=== PATIENT | male | born 1970 | race Caucasian/White ===

== ENCOUNTER → 2016-12-04 | Outpatient (CLI) | payer OTHER ==
[~2016-12-04] MED LIST: FLOM5CAP PO; LEXA1TAB PO; RANI15TA PO; TRAZ100T4 PO; WELL100T PO
== END ==
LOC: M OUTALCOH 08:03
PROVIDERS: ATTEND Psychiatry & Neurology Psychiatry
DX: F19.20 Other psychoactive substance dependence, uncomplicated (principal); F10.20 Alcohol dependence, uncomplicated

== ENCOUNTER → 2017-01-07 | Outpatient (RCR) | payer OTHER | LOC: M OUTALCOH 12-12 14:27 | PROVIDERS: ATTEND Psychiatry & Neurology Psychiatry | DX: F10.20 Alcohol dependence, uncomplicated (principal); F19.20 Other psychoactive substance dependence, uncomplicated ==

== ENCOUNTER → 2017-02-07 | Outpatient (RCR) | payer MEDICAID, OTHER, SELFPAY | LOC: M OUTALCOH 01-08 16:40 | PROVIDERS: ATTEND Psychiatry & Neurology Psychiatry | DX: F19.20 Other psychoactive substance dependence, uncomplicated (principal); F10.20 Alcohol dependence, uncomplicated ==

== ENCOUNTER 2017-03-07 08:45 | Outpatient (RCR) | payer OTHER | END 2017-03-09 | LOC: M OUTALCOH 08:45 | PROVIDERS: ATTEND Psychiatry & Neurology Psychiatry | DX: F19.20 Other psychoactive substance dependence, uncomplicated (principal); F10.20 Alcohol dependence, uncomplicated ==

== ENCOUNTER → 2017-03-13 | Outpatient (REF) | payer OTHER | LOC: M LAB REF 16:00 | PROVIDERS: ATTEND Surgery | DX: L72.0 Epidermal cyst (principal) ==

== ENCOUNTER 2017-03-21 08:45 | Outpatient (RCR) | payer OTHER | END 2017-04-09 | LOC: M OUTALCOH 08:45 | PROVIDERS: ATTEND Psychiatry & Neurology Psychiatry | DX: F19.20 Other psychoactive substance dependence, uncomplicated (principal); F10.20 Alcohol dependence, uncomplicated ==

== ENCOUNTER → 2017-04-14 | Outpatient (REF) | payer OTHER ==
[2017-04-14 12:01] LABS: FREE T4 1.08 NG/DL (0.76-1.46)
[2017-04-16 00:06] LABS: Lyme Disease IgG/IgM Antibodie <0.91 ISR (0.00-0.90); Lyme Disease IgM Ab Quantitati <0.80 index (0.00-0.79)
== END ==
LOC: M SFHCPLAZ 08:25
PROVIDERS: ATTEND Family Medicine
DX: R61 Generalized hyperhidrosis (principal); M25.50 Pain in unspecified joint; A09 Infectious gastroenteritis and colitis, unspecified

== ENCOUNTER → 2017-04-15 | Outpatient (REF) | payer OTHER | LOC: M SFHCPLAZ 09:41 | PROVIDERS: ATTEND Family Medicine | DX: A09 Infectious gastroenteritis and colitis, unspecified (principal) ==

== ENCOUNTER → 2017-04-21 | Outpatient (REF) | payer OTHER ==
[2017-04-21 12:57] LABS: BASO % 0.5 % (0.0-1.0); EOS # 0.4 K/mm3 (0.0-0.50); EOS % 4.7 % (0.0-3.0); LARGE UNSTAINED CELL # 0.1 K/mm3 (0.0-0.4); LARGE UNSTAINED CELL % 1.3 % (0.0-4.0); LYMPH # 2.2 K/mm3 (1.5-4.5); LYMPH % 24.6 % (24.0-44.0); MEAN CORPUSCULAR HGB CONC 34.8 g/dl (32.0-36.5); MEAN CORPUSCULAR VOLUME 97.5 fl (80.0-96.0); MONO # 0.4 K/mm3 (0.0-0.8); MONO % 5.2 % (0.0-5.0); NEUTROPHILS # 5.3 K/mm3 (1.8-7.7); NEUTROPHILS % 63.6 % (36.0-66.0); PLATELET COUNT, AUTOMATED 294 k/mm3 (150-450); RED CELL DISTRIBUTION WIDTH 12.8 % (11.5-14.5); WHITE BLOOD COUNT 8.3 K/mm3 (4.0-10.0)
[2017-04-21 13:33] LABS: ALBUMIN 3.7 GM/DL (3.2-5.2); ALBUMIN/GLOBULIN RATIO 1.09 (1.00-1.93); ALKALINE PHOSPHATASE 107 U/L (45-117); ALT/SGPT 30 U/L (12-78); ANION GAP 3 MEQ/L (8-16); AST/SGOT 19 U/L (15-37); BILIRUBIN,TOTAL 1.1 MG/DL (0.2-1.0); BLOOD UREA NITROGEN 10 MG/DL (7-18); CARBON DIOXIDE LEVEL 30 MEQ/L (21-32); CHLORIDE LEVEL 107 MEQ/L (98-107); CREATININE FOR GFR 0.93 MG/DL (0.70-1.30); GLOMERULAR FILTRATION RATE > 60.0 (>60); GLUCOSE, FASTING 116 MG/DL (70-105); POTASSIUM SERUM 4.3 MEQ/L (3.5-5.1); SODIUM LEVEL 140 MEQ/L (136-145); TOTAL PROTEIN 7.1 GM/DL (6.4-8.2)
== END ==
LOC: M SFHCPLAZ 07:44
PROVIDERS: ATTEND Family Medicine
DX: M25.50 Pain in unspecified joint (principal); R19.7 Diarrhea, unspecified

== ENCOUNTER → 2017-05-05 | Outpatient (CLI) | payer OTHER ==
--- NOTE | 2017-05-05 12:16 | REP ---
Left foot four views : There is no fracture or dislocation. Mineralization and joint spaces are normal. There are no calcifications or foreign bodies. Impression: Negative left foot . Signed by Jarocho Walsh MD 05/05/2017 11:52 A
== END ==
LOC: M WUC 11:11
PROVIDERS: ATTEND Family Medicine
DX: M25.579 Pain in unspecified ankle and joints of unspecified foot (principal)

== ENCOUNTER → 2017-05-27 | Outpatient (CLI) | payer OTHER ==
[~2017-05-27] MED LIST changes: +TRAZ-136 PO; -TRAZ100T4 PO
== END ==
LOC: M OUTALCOH 07:40
PROVIDERS: ATTEND Psychiatry & Neurology Psychiatry
DX: F19.20 Other psychoactive substance dependence, uncomplicated (principal); F10.20 Alcohol dependence, uncomplicated

== ENCOUNTER 2017-06-12 15:00 | Outpatient (RCR) | payer OTHER | END 2017-07-10 | LOC: M OUTALCOH 15:00 | PROVIDERS: ATTEND Psychiatry & Neurology Psychiatry | DX: F19.20 Other psychoactive substance dependence, uncomplicated (principal); F10.20 Alcohol dependence, uncomplicated ==

== ENCOUNTER → 2017-07-28 | Outpatient (REF) | payer OTHER | LOC: M LABDRAW1 13:10 | PROVIDERS: ATTEND Psychiatry & Neurology Psychiatry | DX: F10.20 Alcohol dependence, uncomplicated (principal); F19.20 Other psychoactive substance dependence, uncomplicated ==

== ENCOUNTER 2017-08-04 09:00 | Outpatient (RCR) | payer OTHER | END 2017-08-09 | LOC: M OUTALCOH 09:00 | PROVIDERS: ATTEND Psychiatry & Neurology Psychiatry | DX: F19.20 Other psychoactive substance dependence, uncomplicated (principal); F10.20 Alcohol dependence, uncomplicated ==

== ENCOUNTER → 2017-12-30 | Outpatient (CLI) | payer OTHER ==
[2017-12-30 14:31] LABS: BASO # 0.1 10^3/uL (0.0-0.2); BASO % 0.9 % (0.0-1.0); EOS # 0.4 10^3/uL (0.0-0.50); EOS % 5.7 % (0.0-3.0); HEMOGLOBIN 15.3 g/dl (14.0-18.0); IMMATURE GRANULOCYTE % 0.3 % (0-3.0); LYMPH # 2.5 10^3/uL (1.5-4.5); LYMPH % 33.3 % (24.0-44.0); MEAN CORPUSCULAR HEMOGLOBIN 30.5 pg (27.0-33.0); MEAN CORPUSCULAR HGB CONC 34.8 g/dl (32.0-36.5); MEAN CORPUSCULAR VOLUME 87.8 fl (80.0-96.0); MONO # 0.6 10^3/uL (0.0-0.8); MONO % 8.2 % (0.0-5.0); NEUTROPHILS # 3.9 10^3/uL (1.8-7.7); NEUTROPHILS % 51.6 % (36.0-66.0); PLATELET COUNT, AUTOMATED 308 10^3/uL (150-450); RED BLOOD COUNT 5.01 10^6/uL (4.30-6.10); RED CELL DISTRIBUTION WIDTH 12.6 % (11.5-14.5); WHITE BLOOD COUNT 7.5 10^3/uL (4.0-10.0)
[2017-12-30 14:41] LABS: APPEARANCE, URINE CLEAR (CLEAR); BACTERIA, URINE AUTO NEGATIVE (NEGATIVE); BILIRUBIN, URINE AUTO NEGATIVE (NEGATIVE); BLOOD, URINE BLOOD NEGATIVE (NEGATIVE); COLOR, URINE YELLOW (YELLOW); GLUCOSE, URINE (UA) AUTO NEGATIVE (NEGATIVE); KETONE, URINE AUTO NEGATIVE (NEGATIVE); LEUKOCYTE ESTERASE, URINE AUTO NEGATIVE (NEGATIVE); MUCUS, URINE SMALL (NEGATIVE); NITRITE, URINE AUTO NEGATIVE (NEGATIVE); PROTEIN, URINE AUTO NEGATIVE (NEGATIVE); RBC, URINE AUTO 3 /HPF (0-3); SPECIFIC GRAVITY URINE AUTO 1.013 (1.002-1.035); SQUAMOUS EPITHELIAL CELL UR AU 0 /HPF (0-6); UROBILINOGEN, URINE AUTO 0.2 mg/dL (0.0-2.0); WBC, URINE AUTO 0 /HPF (0-3)
[2017-12-30 14:45] LABS: ALBUMIN/GLOBULIN RATIO 1.33 (1.00-1.93); ALKALINE PHOSPHATASE 68 U/L (45-117); ALT/SGPT 40 U/L (12-78); ANION GAP 8 MEQ/L (8-16); AST/SGOT 25 U/L (7-37); BILIRUBIN,TOTAL 0.8 MG/DL (0.2-1.0); BLOOD UREA NITROGEN 12 MG/DL (7-18); CALCIUM LEVEL 9.1 MG/DL (8.5-10.1); CARBON DIOXIDE LEVEL 30 MEQ/L (21-32); CHLORIDE LEVEL 102 MEQ/L (98-107); CREATININE FOR GFR 0.88 MG/DL (0.70-1.30); GLOMERULAR FILTRATION RATE > 60.0 (>60); GLUCOSE, FASTING 97 MG/DL (70-100); POTASSIUM SERUM 4.2 MEQ/L (3.5-5.1); SODIUM LEVEL 140 MEQ/L (136-145)
[2017-12-31 08:08] LABS: HEPATITIS A IgG TOTAL Negative (Negative)
[2017-12-31 10:56] LABS: HEPATITIS B SURFACE ANTIBODY NEGATIVE (POSITIVE)
[2017-12-31 10:59] LABS: HEPATITIS B SURFACE ANTIGEN NEGATIVE (NEGATIVE)
== END ==
LOC: M LAB 13:17
DX: F10.21 Alcohol dependence, in remission (principal); Z79.899 Other long term (current) drug therapy
CPT/HCPCS: 80053

== ENCOUNTER → 2018-06-26 | Outpatient (CLI) | payer OTHER ==
[2018-06-26 08:31] LABS: BASO # 0.1 10^3/uL (0.0-0.2); BASO % 0.9 % (0.0-1.0); EOS # 0.3 10^3/uL (0.0-0.50); EOS % 4.8 % (0.0-3.0); HEMATOCRIT 46.5 % (42.0-52.0); HEMOGLOBIN 16.3 g/dl (13.5-17.5); IMMATURE GRANULOCYTE % 0.3 % (0-3.0); LYMPH # 1.8 10^3/uL (1.5-4.5); LYMPH % 26.8 % (24.0-44.0); MEAN CORPUSCULAR HGB CONC 35.1 g/dl (32.0-36.5); MEAN CORPUSCULAR VOLUME 91.2 fl (80.0-96.0); MONO # 0.6 10^3/uL (0.0-0.8); MONO % 9.2 % (0.0-5.0); PLATELET COUNT, AUTOMATED 294 10^3/uL (150-450); RED CELL DISTRIBUTION WIDTH 12.5 % (11.5-14.5); WHITE BLOOD COUNT 6.8 10^3/uL (4.0-10.0)
[2018-06-26 09:19] LABS: ALBUMIN 3.8 GM/DL (3.2-5.2); ALBUMIN/GLOBULIN RATIO 1.27 (1.00-1.93); ALKALINE PHOSPHATASE 70 U/L (45-117); ALT/SGPT 26 U/L (12-78); ANION GAP 7 MEQ/L (8-16); AST/SGOT 21 U/L (7-37); BILIRUBIN,TOTAL 1.7 MG/DL (0.2-1.0); BLOOD UREA NITROGEN 9 MG/DL (7-18); CALCIUM LEVEL 8.7 MG/DL (8.5-10.1); CARBON DIOXIDE LEVEL 29 MEQ/L (21-32); CHLORIDE LEVEL 107 MEQ/L (98-107); CHOLESTEROL LEVEL 158 MG/DL (<200); CREATININE FOR GFR 1.16 MG/DL (0.70-1.30); GLOMERULAR FILTRATION RATE > 60.0 (>60); GLUCOSE, FASTING 129 MG/DL (70-100); HDL CHOLESTEROL 61 MG/DL (>40); LDL CHOLESTEROL 86.2 MG/DL (<100); NON-HDL-C 97 MG/DL; SODIUM LEVEL 143 MEQ/L (136-145); THYROID STIMULATING HORMONE 0.417 uIU/ML (0.358-3.740); TOTAL PROTEIN 6.8 GM/DL (6.4-8.2); TRIGLYCERIDES LEVEL 54 MG/DL (<150)
[2018-06-27 14:16] LABS: TESTOSTERONE FREE (DIRECT) 21.1 pg/mL (6.8-21.5)
== END ==
LOC: M LAB 08:03
DX: N52.9 Male erectile dysfunction, unspecified (principal); R10.32 Left lower quadrant pain
CPT/HCPCS: 84403

== ENCOUNTER → 2018-07-02 | Outpatient (CLI) | payer OTHER ==
[~2018-07-02] MED LIST changes: -FLOM5CAP PO; +GASTROGRAFIN SOLUTION 30ML (Q9963) As Ordered; +ISOVUE-370 76% 100ML VIAL (Q9967) As Ordered; -LEXA1TAB PO; -RANI15TA PO; -TRAZ-136 PO; -WELL100T PO
== END ==
LOC: M RAD 11:50
DX: R10.32 Left lower quadrant pain (principal); D18.03 Hemangioma of intra-abdominal structures
CPT/HCPCS: Q9963

== ENCOUNTER 2018-08-10 09:49 | Day surgery (SDC) | payer OTHER ==
[2018-08-10] MEDS: NS 1,000 ML IV (06:00)
[~2018-08-10 09:49] MED LIST changes: -GASTROGRAFIN SOLUTION 30ML (Q9963) As Ordered; -ISOVUE-370 76% 100ML VIAL (Q9967) As Ordered; +LIDOCAINE 2% INJ 100 MG/5 ML SDV (FOR ANES.) As Ordered; +PROPOFOL 200 MG/20 ML VIAL As Ordered
[2018-08-10] MEDS ORDERED: PROPOFOL 200 MG/20 ML VIAL As Ordered (11:54)
== END 2018-08-10 11:55 | disposition home or self-care (01) ==
LOC: M OPP 09:49
DX: K64.8 Other hemorrhoids (principal); K52.9 Noninfective gastroenteritis and colitis, unspecified; K92.1 Melena; K22.8 Other specified diseases of esophagus; K21.0 Gastro-esophageal reflux disease with esophagitis; K29.70 Gastritis, unspecified, without bleeding; R10.13 Epigastric pain; F32.9 Major depressive disorder, single episode, unspecified; F41.9 Anxiety disorder, unspecified; R06.83 Snoring; Z79.899 Other long term (current) drug therapy; Z87.891 Personal history of nicotine dependence; Z80.0 Family history of malignant neoplasm of digestive organs; Z80.41 Family history of malignant neoplasm of ovary
CPT/HCPCS: 45380

== ENCOUNTER → 2018-12-28 | Outpatient (REF) | payer OTHER ==
[~2018-12-28] MED LIST changes: +FLOM0.4C39 PO; +LEXA1TAB PO; -LIDOCAINE 2% INJ 100 MG/5 ML SDV (FOR ANES.) As Ordered; -PROPOFOL 200 MG/20 ML VIAL As Ordered; +RANI15TA PO; +TRAZ-163 PO; +WELL100T PO; +ZOFR4TAB14 PO
[2018-12-28 12:35] LABS: INFLUENZA A AMPLIFICATION POSITIVE (NEGATIVE); INFLUENZA B AMPLIFICATION NEGATIVE (NEGATIVE)
== END ==
LOC: M LAB REF 11:54
PROVIDERS: ATTEND Physician Assistant Medical
DX: J11.1 Influenza due to unidentified influenza virus with other respiratory manifestations (principal)

== ENCOUNTER → 2019-07-05 | Outpatient (REF) | payer OTHER | LOC: M LABDRAWP 10:09 | PROVIDERS: ATTEND Nurse Practitioner Women's Health | DX: R97.20 Elevated prostate specific antigen [PSA] (principal) ==

== ENCOUNTER → 2019-07-05 | Outpatient (CLI) | payer OTHER | LOC: M OUTALCOH 08:08 | PROVIDERS: ATTEND Psychiatry & Neurology Psychiatry | DX: F19.10 Other psychoactive substance abuse, uncomplicated (principal) ==

== ENCOUNTER 2019-07-28 10:42 | Emergency (ER) | payer OTHER ==
[~2019-07-28] VITALS: Ht 175.3 cm; Wt 74.1 kg
[2019-07-28] MEDS ORDERED: CIAL2.5T PO (10:57)
--- NOTE | 2019-07-28 11:57 | REP ---
CT of the cervical spine without IV contrast: Axial images are acquired helical scanning and a reformatted sagittal and coronal projections. The skull base, C1 and C2 are unremarkable. Vertebral body heights and alignment are normal. There is degenerative disc disease at multiple levels from C4 to C7. There is no vertebral compression deformity. There is no listhesis. The facets are normally aligned. There is a degenerative calcification in the ligamentum nuchae. There are no posterior element fractures. Impression: There is no fracture or listhesis. There is multilevel degenerative disc disease. There is a degenerative calcification in the ligamentum nuchae. Electronically Signed by Jarocho Walsh MD 07/28/2019 11:49 A
[2019-07-28] MEDS ORDERED: AMPICILLIN SOD/SULBACTAM SOD 3 GM in D5W MINI-BAG PLUS 100 ML IV ONE (12:30)
[2019-07-28] MEDS ORDERED: ACETAMINOPHEN *IV* 1,000 MG in IV 1 EA IV ONE (12:30)
[2019-07-28] MEDS ORDERED: ADACEL/BOOSTRIX VACCINE (DIPHTH/PERTUSS/ACELL/TETANUS)0.5ML SYR (90715) IM ONE (12:30)
--- NOTE | 2019-07-28 12:44 | REP ---
CT BRAIN WITHOUT CONTRAST: CT brain performed without IV contrast. Ventricles are normal in size and position. There is no midline shift or mass effect. There is a questionable tiny petechial hemorrhage in the left frontal lobe inferiorly. No subdural hemorrhage is seen. There are bilateral temporal bone fractures. There are extensive other facial bone fractures which will be described on the CT of the maxillofacial bones. These involve the bilateral orbits, left zygomatic arch and frontal ethmoidal region. There is extensive fluid throughout the maxillary, ethmoid and frontal sinuses. Mastoid air cells are clear. IMPRESSION: Possible tiny petechial hemorrhage left frontal lobe inferiorly. Small amount of intracranial air in the left frontal extra-axial space, result of fractures extending through the left frontal sinus. Bilateral temporal bone fractures. Extensive maxillofacial bone fractures will be described on the CT of the maxillofacial bones. Dr. Michael was informed of these findings at the time of the exam at approximately 12:00 pm 07/28/2019. Electronically Signed by Jarocho De Anda MD 07/29/2019 04:43 P
--- NOTE | 2019-07-28 13:19 | REP ---
Portable chest, single AP view, the patient upright, 12:35 p.m.: Comparison is 08/17/2014. There is no pneumothorax, hemothorax or pulmonary contusion. The lung boone are clear. Cardiac size is normal. The edith, mediastinum, skeletal structures are unremarkable. Impression: Negative portable chest. Electronically Signed by Jarocho Walsh MD 07/28/2019 01:11 P
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
[2019-07-28 14:11] VITALS: BP 123/73
== END 2019-07-28 14:17 | disposition home or self-care (01) ==
LOC: EDBD 10:42 → M ED 10:42
DX: S02.19XA Other fracture of base of skull, initial encounter for closed fracture (principal); S02.82XA Fracture of other specified skull and facial bones, left side, initial encounter for closed fracture; S02.40FA Zygomatic fracture, left side, initial encounter for closed fracture; S02.2XXA Fracture of nasal bones, initial encounter for closed fracture; S02.40EA Zygomatic fracture, right side, initial encounter for closed fracture; S02.81XA Fracture of other specified skull and facial bones, right side, initial encounter for closed fracture; W18.30XA Fall on same level, unspecified, initial encounter; V18.0XXA Pedal cycle driver injured in noncollision transport accident in nontraffic accident, initial encounter; Y92.410 Unspecified street and highway as the place of occurrence of the external cause; Y93.55 Activity, bike riding
CPT/HCPCS: 70450; 70486; 71045; 72125; 80047; 90471; 90715; 96365; 96367; 99284; J0131

== ENCOUNTER → 2019-08-09 | Outpatient (RCR) | payer OTHER ==
[~2019-08-09] MED LIST changes: +CIAL2.5T PO
== END ==
LOC: M OUTALCOH 07-19 08:54
PROVIDERS: ATTEND Psychiatry & Neurology Psychiatry
DX: F19.20 Other psychoactive substance dependence, uncomplicated (principal)

== ENCOUNTER 2019-09-01 08:00 | Emergency (ER) | payer OTHER, SELFPAY ==
[~2019-09-01] VITALS: Ht 175.3 cm; Wt 74.9 kg
[2019-09-01] MEDS ORDERED: ESCI10TA2 (08:08)
[2019-09-01] MEDS ORDERED: NAPR250T4 PO (08:17)
[2019-09-01] MEDS ORDERED: ACET-683 PO (08:17)
[2019-09-01] MEDS ORDERED: IBUP200C25 PO (08:17)
--- NOTE | 2019-09-01 09:15 | REP ---
CT brain: 09/01/2019. Indication: Headache. Comparison: 07/28/2019. Technique: Unenhanced axial CT images of the brain were obtained from skull base to vertex. Findings: There is no acute intracranial hemorrhage, acute cortical infarction, mass effect, hydrocephalus or significant fluid within the visualized paranasal sinuses/mastoid air cells. Impression: No acute intracranial process. Electronically Signed by Lam Contreras DO 09/01/2019 09:06 A
[2019-09-01] MEDS ORDERED: ONDA4TAB6 PO (09:27)
[2019-09-01] MEDS ORDERED: KETO10TAB PO (09:27)
[2019-09-01 09:31] VITALS: BP 114/78
== END 2019-09-01 09:32 | disposition home or self-care (01) ==
LOC: M ED 08:00
DX: G44.309 Post-traumatic headache, unspecified, not intractable (principal); Z79.1 Long term (current) use of non-steroidal anti-inflammatories (NSAID); Z79.899 Other long term (current) drug therapy

== ENCOUNTER 2019-09-08 16:00 | Outpatient (RCR) | payer OTHER, SELFPAY ==
[~2019-09-08 16:00] MED LIST changes: +ACET-683 PO; +ESCI10TA2; +IBUP200C25 PO; +KETO10TAB PO; +NAPR250T4 PO; +ONDA4TAB6 PO
== END 2019-09-09 ==
LOC: M OUTALCOH 16:00
PROVIDERS: ATTEND Psychiatry & Neurology Psychiatry
DX: F19.20 Other psychoactive substance dependence, uncomplicated (principal)

== ENCOUNTER → 2019-10-01 | Outpatient (CLI) | payer OTHER ==
--- NOTE | 2019-10-01 11:35 | REP ---
MRI brain: 10/01/2019. Indication: Headache. Comparison: CT brain dated 09/01/2019. Technique: Multiplanar short and long TR sequences of the brain were obtained without IV Gadolinium. Findings: There are no areas of restricted diffusion. There is no intracranial mass effect, hydrocephalus or significant hemorrhage. The large intracranial flow voids are unremarkable. No significant signal abnormalities are present within the brainstem or brain parenchyma. Small left mastoid effusion is present. Small retention cyst is present within the left maxillary sinus. The midline structures, and craniocervical junction are unremarkable. Impression: No acute intracranial process. Unremarkable brain. Electronically Signed by Lam Contreras DO 10/01/2019 11:27 A
--- NOTE | 2019-10-01 11:42 | REP ---
Intracranial MRA: 10/01/2019. Indication: Headache. Comparison: None. Technique: 3-D [id number] imaging of the intracranial vessels were obtained with rotational imaging provided. Findings: There is no intracranial high-grade stenosis, vessel occlusion, aneurysm or AVM. The left vertebral artery is dominant. Impression: No high-grade stenosis or vessel occlusion. Unremarkable intracranial MRA. Electronically Signed by Lam Contreras DO 10/01/2019 11:34 A
--- NOTE | 2019-10-01 13:15 | REP ---
MRI ABDOMEN WITH AND WITHOUT CONTRAST: HISTORY: Liver lesion on CT 07/02/2018. TECHNIQUE: Multiple sequences obtained in the axial and coronal planes prior to and following the intravenous of 15 mL ProHance. In the inferior aspect of the right lobe of the liver there is a somewhat lobulated nodule 2.5 cm in diameter which is markedly hyperintense on T2-weighted images. Enhancement characteristics following intravenous administration of gadolinium are consistent with hemangioma. No other liver lesion is seen. In the fundus of the gallbladder there is a filling defect in the dependent portion which measures about 4 mm. This may represent a gallstone. There is no gallbladder wall thickening or edema. The spleen is normal in size with no intrinsic abnormality. The adrenal glands and pancreas are normal. Two cysts are seen in the right kidney mid aspect, measuring 1.8 cm and 2.0 cm in maximum diameter respectively. No adenopathy is seen. No free fluid is seen. IMPRESSION: Benign hemangioma inferior right lobe of liver 2.5 cm in diameter. I suspect a 4 mm gallstone in the dependent portion of the gallbladder. No biliary dilation or gallbladder wall edema. There are two right renal cysts. Electronically Signed by Jarocho De Anda MD 10/04/2019 09:21 A
== END ==
LOC: M PLARAD 08:03
PROVIDERS: ATTEND Family Medicine
DX: S06.0X9D Concussion with loss of consciousness of unspecified duration, subsequent encounter (principal); G43.009 Migraine without aura, not intractable, without status migrainosus; R42 Dizziness and giddiness; H93.13 Tinnitus, bilateral; X58.XXXD Exposure to other specified factors, subsequent encounter; K76.9 Liver disease, unspecified; K80.20 Calculus of gallbladder without cholecystitis without obstruction; D18.09 Hemangioma of other sites; N28.1 Cyst of kidney, acquired

== ENCOUNTER → 2019-11-08 | Outpatient (REF) | payer OTHER ==
[2019-11-08 13:44] LABS: BASO # 0.1 10^3/uL (0.0-0.2); BASO % 0.7 % (0.0-1.0); EOS # 0.5 10^3/uL (0.0-0.5); EOS % 5.5 % (0.0-3.0); HEMOGLOBIN 15.5 g/dl (13.5-17.5); LYMPH # 2.6 10^3/uL (1.5-5.0); LYMPH % 26.9 % (24.0-44.0); MEAN CORPUSCULAR HEMOGLOBIN 32.3 pg (27.0-33.0); MEAN CORPUSCULAR HGB CONC 33.7 g/dl (32.0-36.5); MEAN CORPUSCULAR VOLUME 95.8 fl (80.0-96.0); MONO # 0.7 10^3/uL (0.0-0.8); MONO % 6.9 % (0.0-5.0); NEUTROPHILS # 5.8 10^3/uL (1.5-8.5); NEUTROPHILS % 59.6 % (36.0-66.0); PLATELET COUNT, AUTOMATED 355 10^3/uL (150-450); WHITE BLOOD COUNT 9.8 10^3/uL (4.0-10.0)
[2019-11-08 14:09] LABS: ALBUMIN 3.5 GM/DL (3.2-5.2); ALT/SGPT 23 U/L (12-78); BILIRUBIN,TOTAL 0.8 MG/DL (0.2-1.0); BLOOD UREA NITROGEN 12 MG/DL (7-18); CARBON DIOXIDE LEVEL 31 MEQ/L (21-32); CHLORIDE LEVEL 107 MEQ/L (98-107); CREATININE FOR GFR 0.85 MG/DL (0.70-1.30); GLOMERULAR FILTRATION RATE > 60.0 (>60); GLUCOSE, FASTING 102 MG/DL (70-100); POTASSIUM SERUM 4.5 MEQ/L (3.5-5.1); SODIUM LEVEL 141 MEQ/L (136-145); TOTAL PROTEIN 6.9 GM/DL (6.4-8.2); VALPROIC ACID (DEPAKOTE) < 3.0 UG/ML (50.0-100.0)
== END ==
LOC: M LABNEURO 09:26
PROVIDERS: ATTEND Psychiatry & Neurology Neurology
DX: G43.909 Migraine, unspecified, not intractable, without status migrainosus (principal)

== ENCOUNTER → 2020-01-28 | Outpatient (CLI) | payer OTHER, SELFPAY ==
[~2020-01-28] MED LIST changes: -TRAZ-163 PO; +TRAZ-257 PO
== END ==
LOC: M OUTALCOH 07:46
PROVIDERS: ATTEND Psychiatry & Neurology Addiction Medicine
DX: F10.20 Alcohol dependence, uncomplicated (principal)

== ENCOUNTER 2020-03-08 13:54 | Outpatient (RCR) | payer SELFPAY | END 2020-03-09 | LOC: M OUTALCOH 13:54 | PROVIDERS: ATTEND Psychiatry & Neurology Addiction Medicine | DX: F19.20 Other psychoactive substance dependence, uncomplicated (principal); F10.10 Alcohol abuse, uncomplicated ==

== ENCOUNTER 2020-04-07 13:00 | Outpatient (RCR) | payer SELFPAY | END 2020-04-09 | LOC: M OUTALCOH 13:00 | PROVIDERS: ATTEND Psychiatry & Neurology Addiction Medicine | DX: F10.10 Alcohol abuse, uncomplicated (principal); F19.20 Other psychoactive substance dependence, uncomplicated ==

== ENCOUNTER 2020-05-04 11:43 | Outpatient (RCR) | payer SELFPAY | END 2020-05-09 | LOC: M OUTALCOH 11:43 | PROVIDERS: ATTEND Psychiatry & Neurology Addiction Medicine | DX: F19.20 Other psychoactive substance dependence, uncomplicated (principal); F10.10 Alcohol abuse, uncomplicated ==

== ENCOUNTER → 2020-06-09 | Outpatient (RCR) | payer OTHER, SELFPAY | LOC: M OUTALCOH 05-10 16:01 | PROVIDERS: ATTEND Psychiatry & Neurology Addiction Medicine | DX: F19.20 Other psychoactive substance dependence, uncomplicated (principal); F10.10 Alcohol abuse, uncomplicated ==

== ENCOUNTER 2020-07-05 08:45 | Outpatient (RCR) | payer OTHER, SELFPAY | END 2020-07-10 | LOC: M OUTALCOH 08:45 | PROVIDERS: ATTEND Psychiatry & Neurology Addiction Medicine | DX: F19.20 Other psychoactive substance dependence, uncomplicated (principal); F10.10 Alcohol abuse, uncomplicated ==

== ENCOUNTER → 2020-10-12 | Outpatient (CLI) | payer SELFPAY | LOC: M OUTALCOH 07:55 | PROVIDERS: ATTEND Psychiatry & Neurology Addiction Medicine | DX: Z13.39 Encounter for screening examination for other mental health and behavioral disorders (principal); F10.20 Alcohol dependence, uncomplicated ==

== ENCOUNTER → 2020-10-17 | Outpatient (CLI) | payer SELFPAY | LOC: M LABSMTC 12:50 | PROVIDERS: ATTEND Pediatrics | DX: Z11.59 Encounter for screening for other viral diseases (principal) ==

== ENCOUNTER 2020-11-08 14:41 | Outpatient (RCR) | payer OTHER, SELFPAY | END 2020-11-09 | LOC: M OUTALCOH 14:41 | PROVIDERS: ATTEND Psychiatry & Neurology Addiction Medicine | DX: F10.20 Alcohol dependence, uncomplicated (principal); F16.20 Hallucinogen dependence, uncomplicated | CPT/HCPCS: 90832; 90834; H0038 ==

== ENCOUNTER 2020-12-08 14:33 | Outpatient (RCR) | payer SELFPAY ==
[~2020-12-08 14:33] MED LIST changes: +ESCI10TA16; -ESCI10TA2
== END 2020-12-10 ==
LOC: M OUTALCOH 14:33
PROVIDERS: ATTEND Psychiatry & Neurology Addiction Medicine
DX: F19.20 Other psychoactive substance dependence, uncomplicated (principal); F16.20 Hallucinogen dependence, uncomplicated; F10.20 Alcohol dependence, uncomplicated
CPT/HCPCS: 90832; 90834; H0038

== ENCOUNTER 2021-01-05 11:09 | Outpatient (RCR) | payer SELFPAY | END 2021-01-07 | LOC: M OUTALCOH 11:09 | PROVIDERS: ATTEND Psychiatry & Neurology Addiction Medicine | DX: F10.20 Alcohol dependence, uncomplicated (principal); F16.20 Hallucinogen dependence, uncomplicated ==

== ENCOUNTER 2021-02-06 09:00 | Outpatient (RCR) | payer SELFPAY ==
[~2021-02-06 09:00] MED LIST changes: +NAPR-849 PO; -NAPR250T4 PO
== END 2021-02-07 ==
LOC: M OUTALCOH 09:00
PROVIDERS: ATTEND Psychiatry & Neurology Addiction Medicine
DX: F10.20 Alcohol dependence, uncomplicated (principal); F16.20 Hallucinogen dependence, uncomplicated; F19.20 Other psychoactive substance dependence, uncomplicated

== ENCOUNTER 2021-03-07 15:00 | Outpatient (RCR) | payer SELFPAY | END 2021-03-09 | LOC: M OUTALCOH 15:00 | PROVIDERS: ATTEND Psychiatry & Neurology Psychiatry | DX: F10.20 Alcohol dependence, uncomplicated (principal); F16.20 Hallucinogen dependence, uncomplicated ==

== ENCOUNTER 2021-03-28 15:00 | Outpatient (RCR) | payer SELFPAY | END 2021-04-09 | LOC: M OUTALCOH 15:00 | PROVIDERS: ATTEND Psychiatry & Neurology Psychiatry | DX: F10.20 Alcohol dependence, uncomplicated (principal); F16.20 Hallucinogen dependence, uncomplicated ==

== ENCOUNTER 2021-05-07 11:00 | Outpatient (RCR) | payer SELFPAY | END 2021-05-09 | LOC: M OUTALCOH 11:00 | PROVIDERS: ATTEND Psychiatry & Neurology Psychiatry | DX: F10.20 Alcohol dependence, uncomplicated (principal); F16.20 Hallucinogen dependence, uncomplicated; F19.20 Other psychoactive substance dependence, uncomplicated ==

== ENCOUNTER 2021-05-16 13:04 | Outpatient (RCR) | payer SELFPAY | END 2021-06-09 | LOC: M OUTALCOH 13:04 | PROVIDERS: ATTEND Psychiatry & Neurology Psychiatry | DX: F10.20 Alcohol dependence, uncomplicated (principal); F16.20 Hallucinogen dependence, uncomplicated ==

== ENCOUNTER 2021-06-26 15:02 | Outpatient (RCR) | payer OTHER | END 2021-07-10 | LOC: M OUTALCOH 15:02 | PROVIDERS: ATTEND Psychiatry & Neurology Psychiatry | DX: F10.20 Alcohol dependence, uncomplicated (principal); F16.20 Hallucinogen dependence, uncomplicated ==

== ENCOUNTER 2021-08-13 16:00 | Outpatient (RCR) | payer OTHER | END 2021-09-09 | LOC: M OUTALCOH 16:00 | PROVIDERS: ATTEND Psychiatry & Neurology Psychiatry | DX: F10.20 Alcohol dependence, uncomplicated (principal); F16.20 Hallucinogen dependence, uncomplicated ==

== ENCOUNTER 2021-10-02 15:42 | Outpatient (RCR) | payer OTHER | END 2021-10-09 | LOC: M OUTALCOH 15:42 | PROVIDERS: ATTEND Psychiatry & Neurology Psychiatry | DX: F10.20 Alcohol dependence, uncomplicated (principal); F16.20 Hallucinogen dependence, uncomplicated ==

== ENCOUNTER 2021-11-13 15:46 | Outpatient (RCR) | payer OTHER | END 2021-12-10 | LOC: M OUTALCOH 15:46 | PROVIDERS: ATTEND Psychiatry & Neurology Psychiatry | DX: F10.20 Alcohol dependence, uncomplicated (principal); F16.20 Hallucinogen dependence, uncomplicated ==

== ENCOUNTER 2021-12-31 10:45 | Outpatient (RCR) | payer OTHER | END 2022-01-07 | LOC: M OUTALCOH 10:45 | PROVIDERS: ATTEND Psychiatry & Neurology Psychiatry | DX: F10.20 Alcohol dependence, uncomplicated (principal); F16.20 Hallucinogen dependence, uncomplicated ==

== ENCOUNTER → 2022-05-30 | Outpatient (CLI) | payer OTHER ==
[2022-05-30 10:49] LABS: BASO # 0.1 10^3/uL (0.0-0.2); EOS # 0.3 10^3/uL (0.0-0.5); EOS % 5.2 % (0.0-3.0); HEMATOCRIT 48.8 % (42.0-52.0); HEMOGLOBIN 16.3 g/dl (13.5-17.5); LYMPH # 1.8 10^3/uL (1.5-5.0); LYMPH % 29.1 % (24.0-44.0); MEAN CORPUSCULAR HEMOGLOBIN 31.2 pg (27.0-33.0); MEAN CORPUSCULAR HGB CONC 33.4 g/dl (32.0-36.5); MEAN CORPUSCULAR VOLUME 93.5 fl (80.0-96.0); MONO # 0.6 10^3/uL (0.0-0.8); MONO % 9.5 % (2.0-8.0); NEUTROPHILS # 3.5 10^3/uL (1.5-8.5); PLATELET COUNT, AUTOMATED 398 10^3/uL (150-450); RED BLOOD COUNT 5.22 10^6/uL (4.30-6.10); WHITE BLOOD COUNT 6.3 10^3/uL (4.0-10.0)
[2022-05-30 11:15] LABS: ERYTHROCYTE SEDIMENTATION RATE 13 mm/hr (0-20)
[2022-05-30 11:33] LABS: ALBUMIN 3.8 GM/DL (3.2-5.2); ALT/SGPT 23 U/L (12-78); BILIRUBIN,TOTAL 0.4 MG/DL (0.2-1.0); BLOOD UREA NITROGEN 17 MG/DL (7-18); CALCIUM LEVEL 9.2 MG/DL (8.5-10.1); CARBON DIOXIDE LEVEL 31 MEQ/L (21-32); CHLORIDE LEVEL 108 MEQ/L (98-107); CHOLESTEROL LEVEL 165 MG/DL (<200); CHOLESTEROL RISK RATIO 3.437 (<5); CREATININE FOR GFR 0.85 MG/DL (0.70-1.30); GLOMERULAR FILTRATION RATE > 60.0 (>56); GLUCOSE, FASTING 121 MG/DL (70-100); HDL CHOLESTEROL 48 MG/DL (>40); LDL CHOLESTEROL 101 MG/DL (<100); NON-HDL-C 117 MG/DL; POTASSIUM SERUM 4.6 MEQ/L (3.5-5.1); RHEUMATOID FACTOR QUANT < 10.0 IU/ML (<15.0); SODIUM LEVEL 141 MEQ/L (136-145); THYROID STIMULATING HORMONE 0.561 uIU/ML (0.358-3.740); TOTAL PROTEIN 7.1 GM/DL (6.4-8.2); TRIGLYCERIDES LEVEL 81 MG/DL (<150)
[2022-05-31 20:07] LABS: ANA (HEP2) Negative (.)
== END ==
LOC: M PLALAB 07:44
PROVIDERS: ATTEND Physician Assistant
DX: M25.50 Pain in unspecified joint (principal); Z12.5 Encounter for screening for malignant neoplasm of prostate

== ENCOUNTER → 2022-06-18 | Outpatient (CLI) | payer OTHER | LOC: M RAD 06:34 | PROVIDERS: ATTEND Physician Assistant | DX: K76.0 Fatty (change of) liver, not elsewhere classified (principal); D18.09 Hemangioma of other sites; K80.20 Calculus of gallbladder without cholecystitis without obstruction; N28.1 Cyst of kidney, acquired ==

== ENCOUNTER → 2022-07-12 | Outpatient (CLI) | payer OTHER ==
[~2022-07-12] MED LIST changes: +GASTROGRAFIN SOLUTION 30ML (Q9963) As Ordered ONE; +ISOVUE-370 76% 100ML VIAL As Ordered ONE
== END ==
LOC: M RAD 16:12
PROVIDERS: ATTEND Physician Assistant
DX: R10.84 Generalized abdominal pain (principal); R11.0 Nausea; N28.1 Cyst of kidney, acquired; K76.0 Fatty (change of) liver, not elsewhere classified; N40.0 Benign prostatic hyperplasia without lower urinary tract symptoms
CPT/HCPCS: 74177; Q9963; Q9967

== ENCOUNTER → 2022-07-18 | Outpatient (CLI) | payer OTHER ==
[~2022-07-18] MED LIST changes: -GASTROGRAFIN SOLUTION 30ML (Q9963) As Ordered ONE; -ISOVUE-370 76% 100ML VIAL As Ordered ONE
[2022-07-18 10:51] LABS: HEMOGLOBIN A1c 5.9 %
== END ==
LOC: M PLALAB 08:52
PROVIDERS: ATTEND Physician Assistant
DX: M25.50 Pain in unspecified joint (principal)

== ENCOUNTER → 2022-09-27 | Outpatient (REF) | payer OTHER | LOC: M SFHCDERM 12:30 | PROVIDERS: ATTEND Nurse Practitioner Family | DX: D18.01 Hemangioma of skin and subcutaneous tissue (principal) ==

== ENCOUNTER → 2022-10-17 | Outpatient (REF) | payer OTHER | LOC: M LAB REF 12:39 | PROVIDERS: ATTEND Physician Assistant Medical | DX: R07.0 Pain in throat (principal) ==

== ENCOUNTER 2023-01-28 16:09 | Emergency (ER) | payer OTHER ==
[~2023-01-28] VITALS: Ht 175.3 cm; Wt 77.3 kg
[2023-01-28] MEDS ORDERED: TADA10TA (16:25)
[2023-01-28] MEDS ORDERED: OMEP-173 (16:25)
[2023-01-28] MEDS ORDERED: SUMA50TA2 (16:25)
[2023-01-28] MEDS ORDERED: MULT-90 PO (16:25)
[2023-01-28] MEDS ORDERED: HYDR50TA70 (16:25)
[2023-01-28 18:07] LABS: HEMATOCRIT 39.4 % (42.0-52.0); HEMOGLOBIN 13.3 g/dl (13.5-17.5); MEAN CORPUSCULAR HEMOGLOBIN 30.9 pg (27.0-33.0); MEAN CORPUSCULAR HGB CONC 33.8 g/dl (32.0-36.5); MEAN CORPUSCULAR VOLUME 91.6 fl (80.0-96.0); PLATELET COUNT, AUTOMATED 129 10^3/uL (150-450); WHITE BLOOD COUNT 5.7 10^3/uL (4.0-10.0)
[2023-01-28 18:35] LABS: ALBUMIN 3.5 G/DL (3.2-5.2); BILIRUBIN,DIRECT 0.5 MG/DL (<0.4); BILIRUBIN,TOTAL 1.3 MG/DL (0.3-1.2); TOTAL PROTEIN 6.3 G/DL (5.7-8.2)
[2023-01-28 18:43] LABS: ATYPICAL LYMPH 2 % (0-5); LYMPHOCYTES 18 % (16-44); MONOCYTES 6 % (0-5); NEUTROPHILS 50 % (28-66); PLATELET ESTIMATE DECREASED (NORMAL)
[2023-01-28] MEDS ORDERED: ONDANSETRON 4MG 2ML VIAL IV ONE (19:45)
[2023-01-28] MEDS ORDERED: NS 1,000 ML IV ONE (19:45)
[2023-01-28] MEDS ORDERED: KETOROLAC 30 MG/ML 1ML VIAL IV ONE (19:45)
[2023-01-28] MEDS ORDERED: ISOVUE-370 76% 100ML VIAL As Ordered ONE (19:52)
[2023-01-28] MEDS ORDERED: DICY10CA13 PO (22:16)
[2023-01-28] MEDS ORDERED: ONDA4TAB6 PO (22:16)
[2023-01-28 22:22] VITALS: BP 133/86
== END 2023-01-28 22:26 | disposition home or self-care (01) ==
LOC: M ED 16:09
DX: A08.11 Acute gastroenteropathy due to Norwalk agent (principal); K65.4 Sclerosing mesenteritis; B34.8 Other viral infections of unspecified site; K21.9 Gastro-esophageal reflux disease without esophagitis; Z87.442 Personal history of urinary calculi; F12.10 Cannabis abuse, uncomplicated; F10.10 Alcohol abuse, uncomplicated; Z79.83 Long term (current) use of bisphosphonates; Z79.810 Long term (current) use of selective estrogen receptor modulators (SERMs); Z79.899 Other long term (current) drug therapy
CPT/HCPCS: 74177; 76705; 80047; 80076; 81001; 83690; 85025; 87507; 96374; 96375; 99284; J1885; J2405; Q9967

== ENCOUNTER → 2023-03-17 | Outpatient (CLI) | payer OTHER ==
[~2023-03-17] MED LIST changes: +DICY10CA13 PO; +HYDR50TA70; +MULT-90 PO; +OMEP-173; +SUMA50TA2; +TADA10TA
== END ==
LOC: M RAD 07:31
PROVIDERS: ATTEND Physician Assistant
DX: R10.9 Unspecified abdominal pain (principal); K80.20 Calculus of gallbladder without cholecystitis without obstruction
CPT/HCPCS: 78227; A9537

== ENCOUNTER 2023-06-12 07:46 | Emergency (ER) | payer OTHER ==
[~2023-06-12] VITALS: Ht 175.3 cm; Wt 74.4 kg
[~2023-06-12 07:46] MED LIST changes: +DICY-61 PO; -DICY10CA13 PO
[2023-06-12] MEDS ORDERED: KETOROLAC 30 MG/ML 1ML VIAL IV ONE (08:20)
[2023-06-12] MEDS ORDERED: ONDANSETRON 4MG 2ML VIAL IV ONE (08:20)
[2023-06-12] MEDS ORDERED: NS 1,000 ML IV ONE (08:20)
[2023-06-12 08:46] LABS: BASO # 0.1 10^3/uL (0.0-0.2); BASO % 0.9 % (0.0-1.0); EOS # 0.3 10^3/uL (0.0-0.5); EOS % 5.6 % (0.0-3.0); HEMATOCRIT 45.3 % (42.0-52.0); HEMOGLOBIN 15.5 g/dl (13.5-17.5); LYMPH # 1.7 10^3/uL (1.5-5.0); LYMPH % 29.4 % (24.0-44.0); MEAN CORPUSCULAR HEMOGLOBIN 31.4 pg (27.0-33.0); MEAN CORPUSCULAR HGB CONC 34.2 g/dl (32.0-36.5); MEAN CORPUSCULAR VOLUME 91.7 fl (80.0-96.0); MONO # 0.6 10^3/uL (0.0-0.8); MONO % 9.9 % (2.0-8.0); NEUTROPHILS # 3.2 10^3/uL (1.5-8.5); NEUTROPHILS % 53.9 % (36.0-66.0); PLATELET COUNT, AUTOMATED 256 10^3/uL (150-450); RED BLOOD COUNT 4.94 10^6/uL (4.30-6.10); WHITE BLOOD COUNT 5.9 10^3/uL (4.0-10.0)
[2023-06-12 09:14] LABS: BILIRUBIN,DIRECT 0.2 MG/DL (<0.4); BILIRUBIN,TOTAL 0.8 MG/DL (0.3-1.2); TOTAL PROTEIN 6.5 G/DL (5.7-8.2)
[2023-06-12 10:13] VITALS: BP 134/87; TEMP 98.4; O2SAT 100
== END 2023-06-12 10:17 | disposition home or self-care (01) ==
LOC: M ED 07:46
DX: K80.20 Calculus of gallbladder without cholecystitis without obstruction (principal); K44.9 Diaphragmatic hernia without obstruction or gangrene; K21.9 Gastro-esophageal reflux disease without esophagitis; F32.A Depression, unspecified; F41.9 Anxiety disorder, unspecified; Z87.19 Personal history of other diseases of the digestive system; Z87.442 Personal history of urinary calculi; Z79.83 Long term (current) use of bisphosphonates; Z79.899 Other long term (current) drug therapy
CPT/HCPCS: 74176; 80047; 80076; 81001; 83690; 85025; 96361; 96374; 99284; J1885; J2405

== ENCOUNTER → 2023-07-03 | Outpatient (CLI) | payer OTHER | LOC: M EKG 16:49 | PROVIDERS: ATTEND Anesthesiology | DX: Z01.818 Encounter for other preprocedural examination (principal); R06.83 Snoring; R12 Heartburn ==

== ENCOUNTER 2023-07-17 07:01 | Day surgery (SDC) | payer OTHER ==
[~2023-07-17] VITALS: Ht 175.3 cm; Wt 73.1 kg
[2023-07-17] MEDS ORDERED: LR 1,000 ML IV SCH ×2 (07:50→11:10)
[2023-07-17] MEDS ORDERED: MIDAZOLAM INJ 2MG/2ML VIAL As Ordered ONE (08:31)
[2023-07-17] MEDS ORDERED: fentaNYL 100 MCG/2 ML INJECTION As Ordered ONE (08:31)
[2023-07-17] MEDS ORDERED: propofoL 200 MG/20 ML VIAL As Ordered ONE (08:33)
[2023-07-17] MEDS ORDERED: LIDOCAINE 2% 100MG/5ML SDV (FOR ANES.) As Ordered ONE (08:34)
[2023-07-17] MEDS ORDERED: ONDANSETRON 4MG 2ML VIAL As Ordered ONE (08:36)
[2023-07-17] MEDS ORDERED: ROCURONIUM BROMIDE 50MG/5ML VIAL As Ordered ONE (09:34)
[2023-07-17] MEDS ORDERED: HYDROmorphone HCL 2MG/ML 1ML VIAL As Ordered ONE ×2 (09:56→11:20)
[2023-07-17] MEDS ORDERED: SUGAMMADEX SODIUM 500 MG/5 ML VIAL (BRIDION) As Ordered ONE (11:03)
[2023-07-17] MEDS ORDERED: fentaNYL 100 MCG/2 ML INJECTION IV PRN (11:10)
[2023-07-17] MEDS ORDERED: HYDROMORPHONE HCL 0.5 MG/ 0.5 ML SYRINGE IV PRN (11:10)
[2023-07-17] MEDS ORDERED: oxyCODONE 5MG TAB PO PRN (11:10)
[2023-07-17] MEDS ORDERED: ONDANSETRON 4MG 2ML VIAL IV PRN (11:10)
[2023-07-17 13:28] VITALS: BP 128/70; TEMP 97.8; O2SAT 99
== END 2023-07-17 13:44 | disposition home or self-care (01) ==
LOC: M SDC 07:01
PROVIDERS: ATTEND Surgery
DX: K80.20 Calculus of gallbladder without cholecystitis without obstruction (principal); K21.9 Gastro-esophageal reflux disease without esophagitis; F41.9 Anxiety disorder, unspecified; F32.A Depression, unspecified; G43.909 Migraine, unspecified, not intractable, without status migrainosus; G40.909 Epilepsy, unspecified, not intractable, without status epilepticus; Z79.899 Other long term (current) drug therapy
CPT/HCPCS: 47562; 88304; J0665; J1100; J1170; J2250; J2405; J3010; S2900

== ENCOUNTER 2023-12-23 15:05 | Emergency (ER) | payer OTHER ==
[~2023-12-23] VITALS: Ht 175.3 cm; Wt 78.6 kg
[2023-12-23] MEDS ORDERED: IBUP-1022 PO (15:13)
[2023-12-23] MEDS ORDERED: ACET-910 PO (15:13)
[2023-12-23 20:07] VITALS: BP 155/93; TEMP 96.4; O2SAT 100
[2023-12-23] MEDS: methylPREDNISolone 125MG 2ML VIAL IM ONE (20:19)
== END 2023-12-23 20:23 | disposition home or self-care (01) ==
LOC: M ED 15:05
DX: S43.101A Unspecified dislocation of right acromioclavicular joint, initial encounter (principal); R20.2 Paresthesia of skin; G40.909 Epilepsy, unspecified, not intractable, without status epilepticus; K21.9 Gastro-esophageal reflux disease without esophagitis; Z79.1 Long term (current) use of non-steroidal anti-inflammatories (NSAID); Z79.83 Long term (current) use of bisphosphonates; Z79.899 Other long term (current) drug therapy; Z87.891 Personal history of nicotine dependence; Z87.442 Personal history of urinary calculi; Y92.9 Unspecified place or not applicable; Y93.9 Activity, unspecified; Y99.9 Unspecified external cause status
CPT/HCPCS: 73030; 96372; 99283; J2930

== ENCOUNTER → 2023-12-25 | Outpatient (CLI) | payer OTHER ==
[~2023-12-25] MED LIST changes: +ACET-910 PO; +IBUP-1022 PO
== END ==
LOC: M SOG 13:44
PROVIDERS: ATTEND Orthopaedic Surgery
DX: M61.411 Other calcification of muscle, right shoulder (principal); M25.511 Pain in right shoulder

== ENCOUNTER 2024-01-06 07:43 | Outpatient (RCR) | payer OTHER | END 2024-01-08 | LOC: M PT 07:43 | PROVIDERS: ATTEND Orthopaedic Surgery | DX: M25.511 Pain in right shoulder (principal) ==

== ENCOUNTER 2024-02-06 07:00 | Outpatient (RCR) | payer OTHER | END 2024-02-08 | LOC: M PT 07:00 | PROVIDERS: ATTEND Orthopaedic Surgery | DX: M25.511 Pain in right shoulder (principal) ==

== ENCOUNTER 2024-02-11 07:36 | Outpatient (RCR) | payer OTHER | END 2024-03-09 | LOC: M PT 07:36 | PROVIDERS: ATTEND Orthopaedic Surgery | DX: M25.511 Pain in right shoulder (principal) ==

== ENCOUNTER → 2024-02-12 | Outpatient (CLI) | payer OTHER | LOC: M SOG 15:18 | PROVIDERS: ATTEND Physician Assistant | DX: M54.2 Cervicalgia (principal) ==

== ENCOUNTER 2024-08-12 08:09 | Emergency (ER) | payer OTHER ==
[~2024-08-12] VITALS: Ht 175.3 cm; Wt 79.4 kg
[~2024-08-12 08:09] MED LIST changes: +ONDA-282 PO; -ONDA4TAB6 PO
[2024-08-12 09:21] LABS: APPEARANCE, URINE MANUAL CLEAR (CLEAR); BILIRUBIN, URINE MANUAL NEGATIVE (NEGATIVE); COLOR, URINE MANUAL YELLOW (YELLOW); GLUCOSE, URINE (UA) MANUAL NEGATIVE (NEGATIVE); KETONE, URINE MANUAL NEGATIVE (NEGATIVE); LEUKOCYTE ESTERASE, URINE MAN NEGATIVE (NEGATIVE); NITRITE, URINE MANUAL NEGATIVE (NEGATIVE); PROTEIN, URINE MANUAL NEGATIVE (NEGATIVE); UROBILINOGEN, URINE MANUAL NORMAL (NORMAL)
[2024-08-12 09:22] LABS: BLOOD URINE MANUAL NEGATIVE (NEGATIVE)
[2024-08-12] MEDS ORDERED: KETOROLAC 30 MG/ML 1ML VIAL As Ordered ONE (09:30)
[2024-08-12] MEDS: KETOROLAC 30 MG/ML 1ML VIAL IM ONE (09:32)
[2024-08-12] MEDS ORDERED: LIDO5DIS41 TD (10:47)
[2024-08-12] MEDS ORDERED: CYCL5TAB PO (10:47)
[2024-08-12 10:59] VITALS: BP 129/86; TEMP 97.3; O2SAT 98
[2024-08-12] MEDS: LIDOCAINE 5% (LIDODERM) PATCH TD ONE (11:09)
== END 2024-08-12 11:15 | disposition home or self-care (01) ==
LOC: M ED 08:09
DX: M54.50 Low back pain, unspecified (principal); F12.10 Cannabis abuse, uncomplicated; Z87.442 Personal history of urinary calculi; Z79.1 Long term (current) use of non-steroidal anti-inflammatories (NSAID); Z79.899 Other long term (current) drug therapy
CPT/HCPCS: 81002; 96372; 99283; J1885